=== PATIENT | female | born 1980 | race Two or more races ===

== ENCOUNTER 2023-05-09 10:38 | Emergency (ER) | payer BC ==
[2023-05-09] MEDS ORDERED: Ketorolac 30 MG/ML SDV IVPUSH ONE (11:27)
[2023-05-09] MEDS ORDERED: Ondansetron 4 MG/2 ML SDV IVPUSH ONE (11:28)
[2023-05-09 11:59] LABS: BASOPHILS ABSOLUTE AUTO 0.01 K/uL (0.00-0.20); BASOPHILS PERCENT AUTO 0.2 % (0.0-1.0); EOSINOPHILS ABSOLUTE AUTO 0.14 K/uL (0.00-0.45); EOSINOPHILS PERCENT AUTO 2.7 % (0.0-6.0); HEMATOCRIT 39.3 % (37.0-47.0); IMMATURE GRAN ABSOLUTE AUTO 0.01 K/uL (0.00-0.05); IMMATURE GRAN PERCENT AUTO 0.2 % (0.0-0.4); LYMPHOCYTES ABSOLUTE AUTO 0.74 K/uL (1.00-4.80); LYMPHOCYTES PERCENT AUTO 14.5 % (24.0-44.0); MEAN CORPUSCULAR HEMOGLOBIN 28.8 pg (28.0-32.0); MEAN CORPUSCULAR HGB CONC 33.1 g/dL (32.0-36.0); MEAN CORPUSCULAR VOLUME 86.9 fL (83.0-99.0); MONOCYTES ABSOLUTE AUTO 0.35 K/uL (0.00-0.80); MONOCYTES PERCENT AUTO 6.8 % (0.0-8.0); NEUTROPHILS ABSOLUTE AUTO 3.86 K/uL (1.80-7.70); NEUTROPHILS PERCENT AUTO 75.6 % (41.0-71.0); PLATELET COUNT,PLT 350 K/uL (150-400); RED BLOOD CELL COUNT 4.52 M/uL (4.10-5.30); WHITE BLOOD CELL COUNT,WBC 5.11 K/uL (3.9-11.3)
[2023-05-09 12:25] LABS: A/G RATIO 0.9 (0.9-1.6); ALBUMIN 3.7 g/dL (3.4-5.0); BILIRUBIN TOTAL 0.3 mg/dL (0.2-1.0); CALCIUM 8.3 mg/dL (8.5-10.1); CARBON DIOXIDE,CO2 25.3 mmol/L (21.0-32.0); CREATININE 0.6 mg/dL (0.6-1.0); EST CRCL DRUG DOSING (CG) 97.59 mL/min; MAGNESIUM 1.9 mg/dL (1.8-2.4); PROTEIN TOTAL,TP 7.7 g/dL (6.4-8.2)
[2023-05-09] MEDS ORDERED: Iopamidol 755 MG/ML 500 ML Multipack Bottle IVPUSH STA (13:02)
== END 2023-05-09 14:43 | disposition home or self-care (01) ==
LOC: MW.ED 10:38
DX: R10.11 Right upper quadrant pain (principal); R10.31 Right lower quadrant pain
CPT/HCPCS: 36415; 74177; 76705; 80053; 83690; 83735; 84703; 85025; 96374; 96375; 99284; J1885; J2405; Q9967

== ENCOUNTER 2025-03-19 05:02 | Emergency (ER) | payer SELFPAY ==
[2025-03-19] MEDS: Amoxicillin/Clavulanate K 875-125 MG Tab PO ONE (05:23)
== END 2025-03-19 06:03 | disposition home or self-care (01) ==
LOC: MW.ED 05:02
DX: H60.501 Unspecified acute noninfective otitis externa, right ear (principal); H66.91 Otitis media, unspecified, right ear; Z79.899 Other long term (current) drug therapy
CPT/HCPCS: 99283; A9270